=== PATIENT | female | born 1950 | race African-American/Black ===

== ENCOUNTER 2016-08-09 13:02 | Emergency (ER) | payer OTHER, BC ==
[~2016-08-09] VITALS: Ht 157.5 cm; Wt 50.2 kg
[~2016-08-09 13:02] MED LIST: CARBAMAZEPINE200 MG PO; CARBATROL-ER200 MG PO; ESCITALOPRAM OX10 MG PO; ESCITALOPRAM OX20 MG PO; K-Dur PO; PROAIR HFA8.5 GM IH; SPIRIVA1 INHALATI IH; Theragran PO; Thiamine,Vitamin B1 PO
[2016-08-09 14:24] LABS: HEMATOCRIT 34.8 % (36.0-46.0); MCH 30.9 PG (29.0-34.0); MCHC 33.9 G/DL (30.0-36.0); MCV 91.1 FL (83-99); MEAN PLAT.VOLUME 9.3 uM^3 (9.5-12.4); RBC DIS.WIDTH-CV 12.7 % (11.8-14.6); RBC DIS.WIDTH-SD 40.9 % (39-53); RED BLOOD COUNT 3.82 M/uL (3.80-5.20)
[2016-08-09 14:30] LABS: PLATELET COUNT 354 K/uL (156-360)
[2016-08-09 14:34] LABS: CHLORIDE 102 mEq/L (99-109); POTASSIUM 3.5 mEq/L (3.7-5.4); SODIUM 145 mEq/L (136-147)
[2016-08-09 14:36] LABS: GLUCOSE 56 mg/dL (70-99)
[2016-08-09 14:37] LABS: ANION GAP 18 MEQ/L (2-14)
[2016-08-09 14:39] LABS: SERUM ETHYL ALCOHOL 396 mg/dL
[2016-08-09 14:40] LABS: GFR ESTIMATE (CALCULATED) > 59 mL/min/
[2016-08-09 14:41] LABS: UREA NITROGEN (BUN) 7 mg/dL (9-23)
[2016-08-09 18:38] LABS: POINT-OF-CARE METER ID UU13113702
[2016-08-10 01:46] LABS: AMPHETAMINE NEGATIVE (500 ng/mL); BARBITURATES NEGATIVE (200 ng/mL); BENZODIAZEPINES PRESUMPTIVE POSITIVE (150 ng/mL); COCAINE NEGATIVE (150 ng/mL); INTERNAL CONTROLS VALID? YES; METHADONE NEGATIVE (200 ng/mL); METHAMPHETAMINE NEGATIVE (500 ng/mL); OPIATES (MORPHINE) NEGATIVE (100 ng/mL); OXYCODONE NEGATIVE (100 ng/mL); PHENCYCLIDINE NEGATIVE (25 ng/mL); PROPOXYPHENE NEGATIVE (300 ng/mL); THC CANNABINOIDS NEGATIVE (50 ng/mL); TRICYCLIC ANTIDEPRESSANTS NEGATIVE (300 ng/mL)
[2016-08-10 01:47] LABS: ADD MEDTOX COMMENT Y
[2016-08-10 03:07] VITALS: BP 128/76
[2016-08-10 03:55] LABS: BENZODIAZEPINES QUANT VALUE 0 NG/ML
[2016-08-10 04:03] LABS: BENZODIAZEPINES, URINE SCREEN Negative (200 ng/mL)
[2016-08-10 11:28] LABS: POINT-OF-CARE METER ID UU13113702
== END 2016-08-10 03:08 | disposition home or self-care (01) ==
LOC: EME 13:02
PROVIDERS: Emergency Medicine
DX: F10.20 Alcohol dependence, uncomplicated (principal); F34.1 Dysthymic disorder; Y90.8 Blood alcohol level of 240 mg/100 ml or more; F17.200 Nicotine dependence, unspecified, uncomplicated; J44.9 Chronic obstructive pulmonary disease, unspecified; Z86.73 Personal history of transient ischemic attack (TIA), and cerebral infarction without residual deficits
CPT/HCPCS: 70450; 80048; 80156; 82948; 84999; 85027; 90837; 99281; 99285; G0480; J2060

== ENCOUNTER 2017-01-25 18:46 | Inpatient (IN) | payer OTHER, BC ==
[~2017-01-25] VITALS: Ht 157.5 cm; Wt 53.5 kg
[2017-01-25] MEDS ORDERED: HYDROCHLOROTH12.5 M3 PO (18:58)
[2017-01-25 19:48] LABS: CHLORIDE 92 mEq/L (99-109); POTASSIUM 3.7 mEq/L (3.7-5.4); SODIUM 129 mEq/L (136-147)
[2017-01-25 19:49] LABS: GLUCOSE 134 mg/dL (70-99)
[2017-01-25 19:51] LABS: ANION GAP 14 MEQ/L (2-14)
[2017-01-25 19:53] LABS: GFR ESTIMATE (CALCULATED) > 59 mL/min/
[2017-01-25 19:54] LABS: UREA NITROGEN (BUN) 12 mg/dL (9-23)
[2017-01-25] MEDS ORDERED: OMEPRAZOLE20 MG PO (21:54)
[2017-01-25] MEDS ORDERED: REFRESH LACRI-3.5 GM BOTH EYES (21:56)
[2017-01-25 22:40] LABS: HEMATOCRIT 32.6 % (36.0-46.0); MCHC 34.4 G/DL (30.0-36.0); MCV 90.3 FL (83-99); MEAN PLAT.VOLUME 9.2 uM^3 (9.5-12.4); PLATELET COUNT 235 K/uL (156-360); RBC DIS.WIDTH-CV 13.7 % (11.8-14.6); RED BLOOD COUNT 3.61 M/uL (3.80-5.20); WHITE BLOOD COUNT 7.4 K/uL (4.1-10.2)
[2017-01-25 23:06] VITALS: BP 136/88
[2017-01-25] MEDS ORDERED: VITAMIN B122500 MCG PO (23:49)
[2017-01-25] MEDS ORDERED: MAGNESIUM100 MG PO (23:51)
[2017-01-25] MEDS ORDERED: LEXAPRO10 MG PO (23:51)
[2017-01-26 01:04] LABS: AMPHETAMINES QUANT VALUE 0 NG/ML; BARBITUATES QUANT VALUE 0 NG/ML; BENZODIAZEPINES QUANT VALUE 0 NG/ML; BENZODIAZEPINES, URINE SCREEN Negative (200 ng/mL); MARIJUANA QUANT VALUE 0 NG/ML; OPIATES QUANTITATIVE VALUE 0 NG/ML; PHENCYCLIDINE QUANT VALUE 0 NG/ML
[2017-01-26 03:47] VITALS: BP 151/68
[2017-01-26 07:00] LABS: ALKALINE PHOSPHATASE 45 IU/L (3-129); ANION GAP 11 MEQ/L (2-14); CHLORIDE 98 MEQ/L (99-109); GFR ESTIMATE (CALCULATED) > 59 mL/min/; POTASSIUM 3.6 MEQ/L (3.7-5.4); SAMPLE HEMOLYSIS CHECK 2; SAMPLE ICTERIC CHECK 0; SAMPLE LIPEMIA CHECK 0; TOTAL BILIRUBIN 1.2 MG/DL (0.0-1.0); UREA NITROGEN (BUN) 6 mg/dL (9-23)
[2017-01-26 07:01] LABS: GLUCOSE 80 mg/dL (70-99); SODIUM 137 MEQ/L (136-147)
[2017-01-26 08:13] VITALS: BP 129/70
[2017-01-26 11:22] VITALS: BP 131/71
[2017-01-26 16:01] VITALS: BP 121/60
[2017-01-26 20:31] VITALS: BP 122/62
[2017-01-27 00:28] VITALS: BP 130/67
[2017-01-27 03:45] VITALS: BP 111/67
[2017-01-27 06:49] LABS: HEMATOCRIT 34.4 % (36.0-46.0); MCH 31.1 PG (29.0-34.0); MCHC 33.4 G/DL (30.0-36.0); PLATELET COUNT 245 K/uL (156-360); RBC DIS.WIDTH-CV 13.7 % (11.8-14.6); RBC DIS.WIDTH-SD 47.2 % (39-53); WHITE BLOOD COUNT 5.3 K/uL (4.1-10.2)
[2017-01-27 07:10] LABS: ANION GAP 6 MEQ/L (2-14); CHLORIDE 102 MEQ/L (99-109); GFR ESTIMATE (CALCULATED) > 59 mL/min/; GLUCOSE 78 mg/dL (70-99); SAMPLE HEMOLYSIS CHECK 0; SAMPLE ICTERIC CHECK 0; SAMPLE LIPEMIA CHECK 0; SODIUM 138 MEQ/L (136-147); UREA NITROGEN (BUN) 6 mg/dL (9-23)
[2017-01-27 07:42] VITALS: BP 119/69
[2017-01-27] MEDS ORDERED: LEVETIRACETAM500 MG PO (09:07)
== END 2017-01-27 11:08 | disposition home or self-care (01) | DRG 641 ==
LOC: EME → EDBD 18:46 → EME 18:46 → 3EAST 21:19 → EDOF 21:19 → ENRESERV 21:21 → 3EAST 23:04
PROVIDERS: Emergency Medicine; Hospitalist; Internal Medicine
DX: E87.1 Hypo-osmolality and hyponatremia (principal); G40.909 Epilepsy, unspecified, not intractable, without status epilepticus; F33.9 Major depressive disorder, recurrent, unspecified; Z91.14 Patient's other noncompliance with medication regimen; F17.210 Nicotine dependence, cigarettes, uncomplicated; E87.6 Hypokalemia; I10 Essential (primary) hypertension; K21.9 Gastro-esophageal reflux disease without esophagitis; J44.9 Chronic obstructive pulmonary disease, unspecified; Z80.0 Family history of malignant neoplasm of digestive organs; Z81.1 Family history of alcohol abuse and dependence; Z80.1 Family history of malignant neoplasm of trachea, bronchus and lung
CPT/HCPCS: 70450; 80048; 80053; 80156; 80306 90; 83930; 83935; 84300; 85027; 94640; 94640 76; 95819; 99202; 99281; 99285; G0480; J1644; J7030